=== PATIENT | male | born 1935 | race Caucasian/White ===

== ENCOUNTER 2016-09-11 12:11 | Day surgery (SDC) | payer MEDICARE ==
[~2016-09-11] VITALS: Ht 175.3 cm; Wt 95.0 kg
[~2016-09-11 12:11] MED LIST: 0.9% Sodium Chloride 1,000 ML IV SCH; ASP81TEC PO; CHOL100045 PO; CLON1TAB PO; CYA1000I IM; GLU500 PO; MULT-1018 PO; PAX20 PO; SIMV20TA4 PO; Sodium Chloride LOK Flush 10 mL Syringe IV PRN; TAMS0.4C29 PO; fentaNYL-PF 50 mCg/mL 2 mL Inj IVPUSH PRN
[2016-09-11 13:08] VITALS: BP 129/79; PULSE 66; RESP 15; O2SAT 98
[2016-09-11 14:23] VITALS: BP 118/79; PULSE 69; RESP 16; O2SAT 98
[2016-09-11 14:32] VITALS: BP 138/72; PULSE 68; RESP 26; O2SAT 94
--- NOTE | 2016-09-12 00:54 | ENDO ---
[address] [address] ENDOSCOPY PROCEDURE PATIENT: LEON MADRID : [id number] MR#: [id number] ADMIT: 09/11/2016 JOB ID: [id number] DATE OF PROCEDURE: 09/11/2016 PRIMARY PROVIDER: Zehra Uribe MD. PROCEDURE: Colonoscopy. INDICATIONS: An 81-year-old male with a personal history of colon polyps returning for surveillance. EQUIPMENT: [employer]. SEDATION: 1. Versed 4 mg. 2. Fentanyl 75 mcg. COMPLICATIONS: None identified. BOWEL PREPARATION: Fair, adequate exam. PROCEDURE INFORMATION: After the risks and benefits were explained, written and verbal informed consent was obtained. The patient was brought into the endoscopy suite and placed into the left lateral decubitus position. Sedation was achieved using the above-stated medications with the addition of oxygen via nasal cannula. A digital rectal examination was accomplished. No significant pathology appreciated. The scope was introduced into the rectum and advanced to the cecum as identified by the appendiceal orifice and ileocecal valve. The scope was slowly withdrawn to carefully examine the mucosa for any defects or lesions. Multiple direct views were made through the dentate line for exclusion of pathology. The colon was decompressed. Scope was removed from the patient, who tolerated the procedure well. FINDINGS: There was some scattered diverticula in the left colon. No significant polyps, mass lesions, or inflammatory features identified throughout. ENDOSCOPIC DIAGNOSIS: Mild diverticulosis. RECOMMENDATIONS: Typically, in this scenario with a personal history of adenomatous colon polyps, repeat colonoscopy would be suggested for five years' time. This places the patient at age 86. Surveillance colonoscopy would; therefore, not be required. Repeat colonoscopy on a p.r.n. basis only.
== END 2016-09-11 23:59 | disposition home or self-care (01) ==
LOC: END 12:11
PROVIDERS: ATTEND Internal Medicine Gastroenterology
DX: Z12.11 Encounter for screening for malignant neoplasm of colon (principal); K57.30 Diverticulosis of large intestine without perforation or abscess without bleeding; Z86.010 Personal history of colon polyps; G47.33 Obstructive sleep apnea (adult) (pediatric); G25.81 Restless legs syndrome; E53.8 Deficiency of other specified B group vitamins; E11.9 Type 2 diabetes mellitus without complications; G62.9 Polyneuropathy, unspecified; G47.00 Insomnia, unspecified; E78.2 Mixed hyperlipidemia; I10 Essential (primary) hypertension; Z79.82 Long term (current) use of aspirin; Z79.84 Long term (current) use of oral hypoglycemic drugs
CPT/HCPCS: 99153; G0105; G0500; J7030